=== PATIENT | male | born 1975 | race Caucasian/White ===

== ENCOUNTER 2022-02-21 03:14 | Inpatient (IN) | payer MEDICAID, OTHER ==
[~2022-02-21] VITALS: Ht 172.7 cm; Wt 102.5 kg
[2022-02-21] MEDS ORDERED: HALOPERIDOL LACTATE 5 MG/ML VIAL IM ONE (03:30)
[2022-02-21] MEDS ORDERED: DiphenhydrAMINE HCL 50 MG/ML VIAL IM ONE (03:30)
[2022-02-21] MEDS ORDERED: LORazepam 2 MG/ML VIAL IM ONE (03:30)
[2022-02-21 03:51] LABS: ANION GAP 7 mmol/L (8-16); CALCIUM, TOTAL 9.3 mg/dL (8.8-10.5); CARBON DIOXIDE 30 mmol/L (22-29); CHLORIDE 96 mmol/L (98-107); CREATININE 0.92 mg/dL (0.60-1.30); GLOMERULAR FILTR. RATE CALC > 60 mL/min (>60); GLUCOSE,RANDOM 201 mg/dL (70-110); POTASSIUM 4.2 mmol/L (3.5-5.1); SODIUM SERUM 133 mmol/L (136-145); UREA NITROGEN, BLOOD 14 mg/dL (7-18)
[2022-02-21 04:05] LABS: ALANINE AMINOTRANSFERASE 44 U/L (12-78); ALKALINE PHOSPHATASE 78 U/L (46-116); ASPARTATE AMINOTRANSFERASE 35 U/L (15-37); BILIRUBIN,TOTAL 0.5 mg/dL (0.1-1.0); THYROID STIMULATING HORMONE 1.59 uIU/mL (0.36-3.74); TOTAL PROTEIN, SERUM 8.5 g/dL (6.4-8.2)
[2022-02-21 04:11] LABS: COVID AG,FIA SOURCE NASAL SWAB
[2022-02-21 04:35] LABS: BASOPHILS % (AUTO) 0.4 % (0.0-2.0); EOSINOPHILS % (AUTO) 1.4 % (1.0-6.0); HEMOGLOBIN 17.7 g/dL (13.5-17.5); LYMPHOCYTES # (AUTO) 2.2 K/uL (1.0-4.8); LYMPHOCYTES % (AUTO) 18.2 % (22.0-44.0); MEAN CORPUSCULAR HEMOGLOBIN 30.3 pg (26.0-34.0); MEAN CORPUSCULAR HGB CONC 34.7 G/dL (31.0-37.0); MEAN CORPUSCULAR VOLUME 88 fL (80-100); MONOCYTES # (AUTO) 1.3 K/uL (0.1-1.0); MONOCYTES % (AUTO) 10.8 % (2.0-9.0); NEUTROPHILS # (AUTO) 8.5 K/uL (1.8-7.7); NEUTROPHILS % (AUTO) 69.2 % (40.0-70.0); PLATELET COUNT (AUTO) 285 K/uL (150-450); RED BLOOD CELL COUNT(AUTO) 5.83 MIL/uL (4.50-5.90); RED CELL DISTRIBUTION WIDTH 13.9 % (11.5-14.5)
[2022-02-21] MEDS ORDERED: ZOLPIDEM TARTRATE 10 MG TABLET PO PRN (07:30)
[2022-02-21] MEDS ORDERED: LORazepam 2 MG TABLET PO PRN (07:30)
[2022-02-21] MEDS ORDERED: HALOPERIDOL 5 MG TABLET PO PRN (07:30)
[2022-02-21 09:54] VITALS: BP 142/92
[2022-02-21] MEDS ORDERED: PNEUMOCOCCAL VACCINE POLYVALENT 0.5 ML VIAL [PPSV23] IM. ONE (12:45)
[2022-02-21] MEDS ORDERED: ACETAMINOPHEN 325 MG TABLET PO PRN (14:15)
[2022-02-21] MEDS ORDERED: NICOTINE 14 MG/24 HOUR PATCH TD PRN (14:15)
[2022-02-21] MEDS ORDERED: PETROLATUM,WHITE 28 GM JELLY TP PRN (14:15)
[2022-02-21] MEDS ORDERED: GuaiFENesin/D-METHORPHAN [SUGAR-FREE] 200-20MG/10 ML SYRUP UDCUP PO PRN (14:15)
[2022-02-21] MEDS ORDERED: ONDANSETRON HCL 4 MG TABLET PO PRN (14:15)
[2022-02-21] MEDS ORDERED: DOCUSATE SODIUM 100 MG CAPSULE PO PRN (14:15)
[2022-02-21] MEDS ORDERED: MAG HYDROX/AL HYDROX/SIMETH ES 30 ML SUSPENSION UDCUP PO PRN (14:15)
[2022-02-21] MEDS ORDERED: LOPERAMIDE HCL 2 MG CAPSULE PO PRN (14:15)
[2022-02-21] MEDS ORDERED: CloNIDine HCL 0.1 MG TABLET PO PRN (14:15)
[2022-02-21] MEDS ORDERED: MAGNESIUM HYDROXIDE SUSPENSION 30 ML UDCUP PO PRN (14:15)
[2022-02-21] MEDS ORDERED: ALBUTEROL SULFATE HFA 90 MCG/PUFF 8 GM INHALER IH PRN (14:15)
[2022-02-21 16:33] VITALS: BP 135/87
[2022-02-21 18:55] VITALS: BP 120/87
[2022-02-21] MEDS: IBUPROFEN 400 MG TABLET PO PRN (18:55)
[2022-02-21] MEDS: QUEtiapine FUMARATE 100 MG TABLET PO SCH (20:24)
[2022-02-22 08:22] VITALS: BP 127/89
[2022-02-22] MEDS: IBUPROFEN 400 MG TABLET PO PRN (11:32)
[2022-02-22 12:05] LABS: APPEARANCE,URINE CLEAR (CLEAR); BILIRUBIN,URINE NEGATIVE (NEGATIVE); GLUCOSE, URINE (UA) >=1000 mg/dL (NEGATIVE); KETONES,URINE NEGATIVE (NEGATIVE); LEUKOCYTE ESTERASE ,URINE NEGATIVE (NEGATIVE); NITRATE,URINE NEGATIVE (NEGATIVE); OCCULT BLOOD,URINE NEGATIVE (NEGATIVE); PROTEIN,URINE 30-70 mg/dL (NEGATIVE); SPECIFIC GRAVITIY, URINE 1.017 (1.003-1.030); UROBILINOGEN,URINE <=1.0 mg/dL (<=1.0)
[2022-02-22 12:12] LABS: AMPHET/METH SCREEN,URINE POSITIVE (NEGATIVE); BARBITURATE SCREEN, URINE NEGATIVE (NEGATIVE); BENZODIAZEPINES SCREEN,URINE NEGATIVE (NEGATIVE); CANNABINOID SCREEN,URINE NEGATIVE (NEGATIVE); COCAINE SCREEN,URINE NEGATIVE (NEGATIVE); METHADONE SCREEN, URINE NEGATIVE (NEGATIVE); OPIATE SCREEN,URINE NEGATIVE (NEGATIVE)
[2022-02-22 12:13] LABS: PHENCYCLIDINE SCREEN,URINE NEGATIVE (NEGATIVE)
[2022-02-22 12:26] LABS: BACTERIA,URINE None Seen /HPF (None Seen); RBC,URINE None Seen /HPF (0-2); WBC,URINE None Seen /HPF (0-5)
[2022-02-22 13:21] LABS: GLUCOMETER DEV NAME(LOC) 3E.C; GLUCOSE,POINT OF CARE 265 MG/DL (70-110)
[2022-02-22] MEDS ORDERED: DEXTROSE 50%-WATER 25 GM/50 ML SYRINGE IVP PRN (15:30)
[2022-02-22 16:11] VITALS: BP 126/83
[2022-02-22 16:26] LABS: GLUCOMETER DEV NAME(LOC) 3E.C; GLUCOSE,POINT OF CARE 199 MG/DL (70-110)
[2022-02-22] MEDS: INSULIN LISPRO 100 UNITS/ML SQ PRN ×2 (17:09→21:06)
[2022-02-22] MEDS: QUEtiapine FUMARATE 100 MG TABLET PO SCH (21:06)
[2022-02-22 21:26] LABS: GLUCOMETER DEV NAME(LOC) 3E.C; GLUCOSE,POINT OF CARE 237 MG/DL (70-110)
[2022-02-23 06:16] LABS: GLUCOMETER DEV NAME(LOC) 3E.C; GLUCOSE,POINT OF CARE 187 MG/DL (70-110)
[2022-02-23] MEDS: INSULIN LISPRO 100 UNITS/ML SQ PRN ×3 (06:46→21:43)
[2022-02-23 08:29] VITALS: BP 120/89
[2022-02-23] MEDS: PRAVASTATIN SODIUM 40 MG TABLET PO SCH (10:06)
[2022-02-23] MEDS: ASPIRIN 81 MG CHEWABLE TABLET PO SCH (10:09)
[2022-02-23] MEDS: OMEPRAZOLE 20 MG CAPSULE PO SCH (10:09)
[2022-02-23 10:31] LABS: GLUCOMETER DEV NAME(LOC) 3E.C; GLUCOSE,POINT OF CARE 209 MG/DL (70-110)
[2022-02-23 16:13] VITALS: BP 120/89
[2022-02-23 16:22] LABS: GLUCOMETER DEV NAME(LOC) 3E.C; GLUCOSE,POINT OF CARE 196 MG/DL (70-110)
[2022-02-23] MEDS: MetFORMIN HCL 500 MG TABLET PO SCH (16:41)
[2022-02-23] MEDS: QUEtiapine FUMARATE 100 MG TABLET PO SCH (20:15)
[2022-02-23] MEDS ORDERED: BENAZEPRIL HCL 10 MG TABLET PO SCH (21:00)
[2022-02-23 21:16] LABS: GLUCOMETER DEV NAME(LOC) 3E.C; GLUCOSE,POINT OF CARE 217 MG/DL (70-110)
[2022-02-24 06:06] LABS: GLUCOMETER DEV NAME(LOC) 3E.C; GLUCOSE,POINT OF CARE 189 MG/DL (70-110)
[2022-02-24 06:14] VITALS: BP 128/92
[2022-02-24 06:17] VITALS: BP 128/92
[2022-02-24] MEDS: INSULIN LISPRO 100 UNITS/ML SQ PRN (06:37)
[2022-02-24] MEDS: MetFORMIN HCL 500 MG TABLET PO SCH (06:41)
[2022-02-24] MEDS: PRAVASTATIN SODIUM 40 MG TABLET PO SCH (07:57)
[2022-02-24] MEDS: ASPIRIN 81 MG CHEWABLE TABLET PO SCH (07:58)
[2022-02-24] MEDS: OMEPRAZOLE 20 MG CAPSULE PO SCH (07:59)
[2022-02-24 08:54] VITALS: BP 145/94
[2022-02-24] MEDS ORDERED: ASPI81TA39 PO (09:54)
[2022-02-24] MEDS ORDERED: BENA10TA77 PO (09:54)
[2022-02-24] MEDS ORDERED: METF-1211 PO (09:55)
[2022-02-24] MEDS ORDERED: PRAV40TA4 PO (09:56)
[2022-02-24] MEDS ORDERED: OMEP20 PO (09:56)
[2022-02-24] MEDS ORDERED: QUET100T34 PO (13:27)
== END 2022-02-24 11:45 | disposition home or self-care (01) | DRG 750 ==
LOC: EMS 03:15 → 3EC 07:44
PROVIDERS: ADMIT Psychiatry & Neurology Psychiatry; ATTEND Psychiatry & Neurology Psychiatry
DX: F20.0 Paranoid schizophrenia (principal); E87.1 Hypo-osmolality and hyponatremia; D72.829 Elevated white blood cell count, unspecified; E66.9 Obesity, unspecified; F10.10 Alcohol abuse, uncomplicated; R73.9 Hyperglycemia, unspecified; Z20.822 Contact with and (suspected) exposure to COVID-19; F15.10 Other stimulant abuse, uncomplicated; Z79.899 Other long term (current) drug therapy; Z68.34 Body mass index [BMI] 34.0-34.9, adult; Z91.51 Personal history of suicidal behavior
CPT/HCPCS: 80053; 80307; 81001; 82962; 84443; 85025; 99285; G0480; J1200; J1630; J2060

== ENCOUNTER 2022-11-30 15:56 | Emergency (ER) | payer MEDICAID ==
[~2022-11-30] VITALS: Ht 172.7 cm; Wt 104.5 kg
[~2022-11-30 15:56] MED LIST: ASPI81TA39 PO; BENA10TA77 PO; METF-1211 PO; OMEP20 PO; PRAV40TA4 PO; QUET100T34 PO
[2022-11-30] MEDS ORDERED: LORazepam 1 MG TABLET PO ONE (16:15)
[2022-11-30] MEDS ORDERED: DiphenhydrAMINE HCL 25 MG CAPSULE PO ONE (16:15)
[2022-11-30] MEDS ORDERED: HALOPERIDOL 5 MG TABLET PO ONE (16:15)
[2022-11-30 16:40] LABS: BASOPHILS % (AUTO) 0.2 % (0.0-2.0); EOSINOPHILS % (AUTO) 1.1 % (1.0-6.0); HEMATOCRIT 45.4 % (41-53); HEMOGLOBIN 15.7 g/dL (13.5-17.5); LYMPHOCYTES # (AUTO) 2.7 K/uL (1.0-4.8); MEAN CORPUSCULAR HEMOGLOBIN 30.1 pg (26.0-34.0); MEAN CORPUSCULAR HGB CONC 34.5 G/dL (31.0-37.0); MEAN CORPUSCULAR VOLUME 88 fL (80-100); MONOCYTES # (AUTO) 1.2 K/uL (0.1-1.0); MONOCYTES % (AUTO) 8.6 % (2.0-9.0); NEUTROPHILS # (AUTO) 10.1 K/uL (1.8-7.7); NEUTROPHILS % (AUTO) 71.1 % (40.0-70.0); PLATELET COUNT (AUTO) 337 K/uL (150-450); RED BLOOD CELL COUNT(AUTO) 5.19 MIL/uL (4.50-5.90)
[2022-11-30 16:56] LABS: ANION GAP 11 mmol/L (8-16); CALCIUM, TOTAL 8.6 mg/dL (8.8-10.5); CARBON DIOXIDE 24 mmol/L (22-29); CHLORIDE 102 mmol/L (98-107); CREATININE 0.93 mg/dL (0.60-1.30); GLUCOSE,RANDOM 232 mg/dL (70-110); POTASSIUM 3.9 mmol/L (3.5-5.1); SODIUM SERUM 137 mmol/L (136-145); UREA NITROGEN, BLOOD 8 mg/dL (7-18)
[2022-11-30 16:57] LABS: GLOMERULAR FILTR. RATE CALC > 60 mL/min (>60)
[2022-11-30 17:01] LABS: ALANINE AMINOTRANSFERASE 20 U/L (12-78); ALKALINE PHOSPHATASE 74 U/L (46-116); ASPARTATE AMINOTRANSFERASE 14 U/L (15-37); BILIRUBIN,TOTAL 0.3 mg/dL (0.1-1.0); TOTAL PROTEIN, SERUM 7.4 g/dL (6.4-8.2)
[2022-11-30 17:59] LABS: AMPHET/METH SCREEN,URINE POSITIVE (NEGATIVE); BARBITURATE SCREEN, URINE POSITIVE (NEGATIVE); BENZODIAZEPINES SCREEN,URINE POSITIVE (NEGATIVE); CANNABINOID SCREEN,URINE NEGATIVE (NEGATIVE); COCAINE SCREEN,URINE NEGATIVE (NEGATIVE); METHADONE SCREEN, URINE NEGATIVE (NEGATIVE); OPIATE SCREEN,URINE NEGATIVE (NEGATIVE)
[2022-11-30 18:05] LABS: PHENCYCLIDINE SCREEN,URINE NEGATIVE (NEGATIVE)
[2022-11-30 18:08] VITALS: BP 121/71
== END 2022-11-30 18:43 | disposition home or self-care (01) ==
LOC: EMS 15:58 → UNDOADMIN 16:03 → 5S 16:03 → EMS 18:43
DX: F41.9 Anxiety disorder, unspecified (principal); F10.10 Alcohol abuse, uncomplicated; F15.10 Other stimulant abuse, uncomplicated; F20.9 Schizophrenia, unspecified
CPT/HCPCS: 99284; 80053; 85025; 36415; 80307 ×2; G0480